=== PATIENT | female | born 1985 | race Caucasian/White ===

== ENCOUNTER 2022-08-28 00:46 | Emergency (ER) | payer MEDICAID, OTHER ==
[~2022-08-28] VITALS: Ht 170.1 cm; Wt 130.3 kg
--- NOTE | 2022-08-28 01:00 | ED Psychosocial ---
General Stated Complaint: MENTAL HEALTH SCREENING History of Present Illness Date Seen by Provider: Aug 28, 2022 Time Seen by Provider: 00:57 Initial Comments 37-year-old female presents for mental health exam. Patient reports that she struggles with self-worth and depression. That she been having some difficulties with her relationship. That over the last 2 days she has had increased suicidal ideation. That for the first time tonight she actually thought of a plan and that scared her. That she thought that she wanted to just go drive [place]. Patient does not have any physical, plane such as fevers chills etc. (ERIC LÓPEZ DO) Allergies and Home Medications Allergies Coded Allergies: No Known Drug Allergies (Unverified , 08/28/22) Patient Home Medication List Home Medication List Reviewed: Yes (ERIC LÓPEZ DO) Review of Systems Constitutional: no symptoms reported; No chills, No fever EENTM: no symptoms reported Respiratory: no symptoms reported Cardiovascular: no symptoms reported Gastrointestinal: no symptoms reported Genitourinary: no symptoms reported : No Musculoskeletal: no symptoms reported Skin: no symptoms reported Psychiatric/Neurological: See HPI, Depressed, Emotional Problems (ERIC LÓPEZ DO) Physical Exam Vital Signs - First Documented 08/28/22 00:51 Temp 37.0 Pulse 89 Resp 18 B/P (MAP) 136/98 (111) Pulse Ox 99 O2 Delivery Room Air (CLAUDINE MARTINEZ MD) Capillary Refill : (ERIC LÓPEZ DO) Height, Weight, BMI Height: '" Weight: lbs. oz. kg; BMI Method: General Appearance: obese, other (tearful ) HEENT: PERRL/EOMI Neck: full range of motion, supple Respiratory: lungs clear, normal breath sounds, no respiratory distress Cardiovascular: normal peripheral pulses, regular rate, rhythm Gastrointestinal: non tender, soft Neurologic/Psychiatric: alert, normal mood/affect, oriented x 3 Appearance/Memory: appropriate appearance Behavior/Eye Contact: normal speech, other (Tearful) Thoughts/Hallucinations: other (Suicidal ideation, depression) Skin: normal color, warm/dry (ERIC LÓPEZ DO) Progress/Results/Core Measures Results/Orders Lab Results Laboratory Tests Test 08/28/22 00:57 08/28/22 09:41 Range/Units White Blood Count 11.2 H 4.3-11.0 10^3/uL Red Blood Count 5.02 3.80-5.11 10^6/uL Hemoglobin 12.3 11.5-16.0 g/dL Hematocrit 39 35-52 % Mean Corpuscular Volume 77 L 80-99 fL Mean Corpuscular Hemoglobin 25 25-34 pg Mean Corpuscular Hemoglobin Concent 32 32-36 g/dL Red Cell Distribution Width 17.8 H 10.0-14.5 % Platelet Count 305 130-400 10^3/uL Mean Platelet Volume 11.4 9.0-12.2 fL Immature Granulocyte % (Auto) 0 % Neutrophils (%) (Auto) 65 42-75 % Lymphocytes (%) (Auto) 23 12-44 % Monocytes (%) (Auto) 7 0-12 % Eosinophils (%) (Auto) 5 0-10 % Basophils (%) (Auto) 1 0-10 % Neutrophils # (Auto) 7.2 1.8-7.8 10^3/uL Lymphocytes # (Auto) 2.5 1.0-4.0 10^3/uL Monocytes # (Auto) 0.7 0.0-1.0 10^3/uL Eosinophils # (Auto) 0.6 H 0.0-0.3 10^3/uL Basophils # (Auto) 0.1 0.0-0.1 10^3/uL Immature Granulocyte # (Auto) 0.0 0.0-0.1 10^3/uL Urine Color YELLOW Urine Clarity SL CLOUDY Urine pH 6.0 5-9 Urine Specific [place] 1.025 H 1.016-1.022 Urine Protein NEGATIVE NEGATIVE Urine Glucose (UA) NEGATIVE NEGATIVE Urine Ketones NEGATIVE NEGATIVE Urine Nitrite NEGATIVE NEGATIVE Urine Bilirubin NEGATIVE NEGATIVE Urine Urobilinogen 0.2 < = 1.0 MG/DL Urine Leukocyte Esterase NEGATIVE NEGATIVE Urine RBC (Auto) TRACE-I H NEGATIVE Urine RBC NONE /HPF Urine WBC RARE /HPF Urine Squamous Epithelial Cells 2-5 /HPF Urine Crystals NONE /LPF Urine Bacteria FEW H /HPF Urine Casts PRESENT /LPF Urine Hyaline Casts RARE /LPF Urine Mucus MODERATE H /LPF Urine Other RARE SPERMATOZOA /HPF Urine Culture Indicated NO Urine Test NEGATIVE NEGATIVE Sodium Level 137 135-145 MMOL/L Potassium Level 3.8 3.6-5.0 MMOL/L Chloride Level 99 98-107 MMOL/L Carbon Dioxide Level 22 21-32 MMOL/L Anion Gap 16 H 5-14 MMOL/L Blood Urea Nitrogen 12 7-18 MG/DL Creatinine 0.92 0.60-1.30 MG/DL Estimat Glomerular Filtration Rate 82 BUN/Creatinine Ratio 13 Glucose Level 124 H 70-105 MG/DL Calcium Level 9.4 8.5-10.1 MG/DL Corrected Calcium 9.2 8.5-10.1 MG/DL Total Bilirubin 0.3 0.1-1.0 MG/DL Aspartate Amino Transf (AST/SGOT) 20 5-34 U/L Alanine Aminotransferase (ALT/SGPT) 25 0-55 U/L Alkaline Phosphatase 133 40-136 U/L Total Protein 7.8 6.4-8.2 GM/DL Albumin 4.3 3.2-4.5 GM/DL Salicylates Level < 0.3 L 5.0-20.0 MG/DL Urine Opiates Screen NEGATIVE NEGATIVE Urine Oxycodone Screen NEGATIVE NEGATIVE Urine Methadone Screen NEGATIVE NEGATIVE Urine Propoxyphene Screen NEGATIVE NEGATIVE Acetaminophen Level < 10 L 10-30 UG/ML Urine Barbiturates Screen NEGATIVE NEGATIVE Ur Tricyclic Antidepressants Screen NEGATIVE NEGATIVE Urine Phencyclidine Screen NEGATIVE NEGATIVE Urine Amphetamines Screen NEGATIVE NEGATIVE Urine Methamphetamines Screen NEGATIVE NEGATIVE Urine Benzodiazepines Screen NEGATIVE NEGATIVE Urine Cocaine Screen NEGATIVE NEGATIVE Urine Cannabinoids Screen POSITIVE H NEGATIVE Serum Alcohol < 10 <10 MG/DL SARS-CoV-2 RNA (RT-PCR) Not Detected Not Detecte (CLAUDINE MARTINEZ MD) My Orders Orders - CLAUDINE MARTINEZ MD Covid 19 Inhouse Test (08/28/22 09:40) Ketorolac Injection (Toradol Injection) (08/28/22 10:32) Ondansetron Oral Dissolve Tab (Zofran (08/28/22 10:32) (CLAUDINE MARTINEZ MD) Vital Signs/I&O 08/28/22 09:00 Temp 36.5 Pulse 75 Resp 16 B/P (MAP) 134/87 (103) Pulse Ox 99 O2 Delivery Room Air (CLAUDINE MARTINEZ MD) Progress Progress Note : Progress Note Patient was evaluated by behavioral health. They feel she would benefit from inpatient therapy and will look for placement for her (ERIC LÓPEZ DO) Progress Note #1: Time: 07:00 Progress Note I assumed care of the patient from Dr. López at shift change. He advised that the patient was medically clear and stable for psychiatric admit and that after mental health evaluation it was felt she would benefit from Inpatient psychiatric care. Awaiting placement at a Psychiatric facility. Progress Note #2: Time: 11:[address] Martinez from [facility] accepted pt for psychiatric admit. Awaiting transport at 1400 to take patient to psychiatric facility. (CLAUDINE MARTINEZ MD) Initial ECG Impression Date: Aug 28, 2022 Initial ECG Impression Time: 01:22 Initial ECG Rate: 84 Initial ECG Rhythm: Normal Sinus Initial ECG Comparisson: No Previous ECG Available Comment Normal sinus rhythm with a heart rate of 84 bpm. OR interval [address] elevation. No prior tracing for comparison. QT interval 369 ms with a QTc interval 437 ms. (CLAUDINE MARTINEZ MD) Departure Impression Primary Impression: Depression with suicidal ideation Disposition: 65 XFER TO PSYCH HOSP/UNIT Condition: Stable Transfer Transfer Reason: Exceeds level of care (Needs psychiatric care) Time Spoke to Accepting Phy: 11:[address] Martinez with [facility] accepted pt for psychiatric care Transfer Facility: [facility] Method of Transfer: Private Vehicle (CLAUDINE MARTINEZ MD) Departure-Patient Inst. Referrals: NO,LOCAL PHYSICIAN (PCP/Family) Primary Care Physician ERIC LÓPEZ DO Aug 28, 2022 01:00 CLAUDINE MARTINEZ MD Aug 28, 2022 07:37
[2022-08-28 01:19] LABS: BASOPHILS # (AUTO) 0.1 10^3/uL (0.0-0.1); BASOPHILS % (AUTO) 1 % (0-10); EOSINOPHILS # (AUTO) 0.6 10^3/uL (0.0-0.3); EOSINOPHILS % (AUTO) 5 % (0-10); HEMATOCRIT 39 % (35-52); HEMOGLOBIN 12.3 g/dL (11.5-16.0); LYMPHOCYTES # (AUTO) 2.5 10^3/uL (1.0-4.0); LYMPHOCYTES % (AUTO) 23 % (12-44); MEAN CORPUSCULAR HEMOGLOBIN 25 pg (25-34); MEAN CORPUSCULAR HGB CONC 32 g/dL (32-36); MEAN CORPUSCULAR VOLUME 77 fL (80-99); MEAN PLATELET VOLUME 11.4 fL (9.0-12.2); MONOCYTES # (AUTO) 0.7 10^3/uL (0.0-1.0); MONOCYTES % (AUTO) 7 % (0-12); NEUTROPHILS # (AUTO) 7.2 10^3/uL (1.8-7.8); NEUTROPHILS % (AUTO) 65 % (42-75); PLATELET COUNT 305 10^3/uL (130-400); WHITE BLOOD COUNT 11.2 10^3/uL (4.3-11.0)
[2022-08-28 01:42] LABS: BACTERIA,URINE FEW /HPF; BILIRUBIN,URINE NEGATIVE (NEGATIVE); CLARITY,URINE SL CLOUDY; COLOR,URINE YELLOW; GLUCOSE, URINE (UA) NEGATIVE (NEGATIVE); KETONES,URINE NEGATIVE (NEGATIVE); LEUKOCYTE ESTERASE ,URINE NEGATIVE (NEGATIVE); NITRITE,URINE NEGATIVE (NEGATIVE); PROTEIN,URINE NEGATIVE (NEGATIVE); WBC,URINE RARE /HPF
[2022-08-28 01:43] LABS: HYALINE CASTS, URINE RARE /LPF; URINE OTHER RARE SPERMATOZOA /HPF
[2022-08-28 01:44] LABS: AMPHETAMINE SCREEN, URINE NEGATIVE (NEGATIVE); BARBITURATE SCREEN URINE NEGATIVE (NEGATIVE); BENZODIAZEPINES SCREEN URINE NEGATIVE (NEGATIVE); CANNABINOID SCREEN, URINE POSITIVE (NEGATIVE); COCAINE SCREEN URINE NEGATIVE (NEGATIVE); HCG,QUALITATIVE URINE NEGATIVE (NEGATIVE); METHADONE STAT NEGATIVE (NEGATIVE); OPIATE SCREEN URINE NEGATIVE (NEGATIVE); OXYCODONE STAT NEGATIVE (NEGATIVE); PROPOXYPHENE STAT NEGATIVE (NEGATIVE); TRICYCLIC ANTIDEPRESSANTS SCRE NEGATIVE (NEGATIVE)
[2022-08-28 02:00] LABS: SODIUM 137 MMOL/L (135-145)
[2022-08-28 02:01] LABS: ACETAMINOPHEN < 10 UG/ML (10-30); ALANINE AMINOTRANSFERASE 25 U/L (0-55); ALBUMIN 4.3 GM/DL (3.2-4.5); ALKALINE PHOSPHATASE 133 U/L (40-136); BILIRUBIN,TOTAL 0.3 MG/DL (0.1-1.0); BUN/CREATININE RATIO 13; CALCIUM 9.4 MG/DL (8.5-10.1); CARBON DIOXIDE 22 MMOL/L (21-32); CHLORIDE 99 MMOL/L (98-107); CREATININE SERUM 0.92 MG/DL (0.60-1.30); GFR ESTIMATED 82; GLUCOSE 124 MG/DL (70-105); POTASSIUM 3.8 MMOL/L (3.6-5.0); SALICYLATE < 0.3 MG/DL (5.0-20.0); TOTAL PROTEIN 7.8 GM/DL (6.4-8.2)
[2022-08-28] MEDS ORDERED: KETOROLAC 60 MG/2 ML VIAL IM STA (10:32)
[2022-08-28] MEDS ORDERED: ONDANSETRON 4 MG (ZOFRAN) ORAL DISSOLVE TAB PO STA (10:32)
[2022-08-28 14:14] VITALS: BP 135/78
== END 2022-08-28 14:07 ==
LOC: ER FS 00:50
DX: F32.A Depression, unspecified (principal); E66.9 Obesity, unspecified; Z68.42 Body mass index [BMI] 45.0-49.9, adult; Z20.822 Contact with and (suspected) exposure to COVID-19
CPT/HCPCS: 36415; 80053; 80306; 80320; 80329; 81000; 84703; 85025; 87636; 93005

== ENCOUNTER 2022-11-27 05:11 | Emergency (ER) | payer MEDICAID ==
[~2022-11-27] VITALS: Ht 170.1 cm; Wt 128.7 kg
--- NOTE | 2022-11-27 05:35 | ED Respiratory ---
General Chief Complaint: Respiratory Problems Stated Complaint: CONGESTION,SOB History of Present Illness Date Seen by Provider: Nov 27, 2022 Time Seen by Provider: 05:27 Initial Comments 37-year-old female with PMH anxiety, depression, and pre-diabetes, ex-smoker who stopped smoking in 2017, is here with complaints of shortness of breath and wheezing which began around 10 PM last night. Patient does not have a history of asthma or COPD. Patient is able to speak and clear sentences however she is wheezing and noticeably short of breath. Patient states that she has been having cough and congestion and runny nose for the past few days. Denies fever, chest pain, palpitations, abdominal pain, diarrhea. No known sick contacts. Allergies and Home Medications Allergies Coded Allergies: No Known Drug Allergies (Unverified , 08/28/22) Patient Home Medication List Home Medication List Reviewed: Yes Escitalopram Oxalate (Escitalopram Oxalate) 10 Mg Tablet, 10 MG PO DAILY, (Reported) Entered as Reported by: LA FERNANDEZ on 11/27/22543 Last Action: New Order Metformin HCl (Metformin HCl) 500 Mg Tablet, 500 MG PO BID, (Reported) Entered as Reported by: LA FERNANDEZ on 11/27/22543 Last Action: New Order Trazodone HCl (Trazodone HCl) 100 Mg Tablet, 100 MG PO HS PRN for INSOMNIA, (Reported) Entered as Reported by: LA FERNANDEZ on 11/27/22543 Last Action: New Order Review of Systems Review of Systems Constitutional: no symptoms reported EENTM: see HPI, nose congestion Respiratory: cough, short of breath, wheezing Cardiovascular: no symptoms reported Gastrointestinal: no symptoms reported Genitourinary: no symptoms reported Musculoskeletal: no symptoms reported Skin: no symptoms reported Psychiatric/Neurological: No Symptoms Reported Hematologic/Lymphatic: No Symptoms Reported Immunological/Allergic: no symptoms reported Past Tdmrzdq-Degemq-Fmmhyv Hx Patient Social History Tobacco Use?: No Smoking Status: Never a Smoker Smokeless Tobacco Frequency: Never a User Use of E-Cig and/or Vaping dev: No Use of E-Cig and/or Vaping Jude: Never a User Substance use?: Yes Substance type: Marijuana Alcohol Use?: No Pt feels they are or have been: No Immunizations Up To Date Influenza Vaccine Up-to-Date: Yes; Up-to-Date First/Initial COVID19 Vaccinat: Unknown date Second COVID19 Vaccination Brandin: Unknown date 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 oz. kg; 45.00 BMI Method: General Appearance: mild distress, obese HEENT: PERRL/EOMI Neck: non-tender, full range of motion Respiratory: lungs clear, wheezing, expiration Cardiovascular: regular rate, rhythm Gastrointestinal: non tender, soft Extremities: normal range of motion Neurologic/Psychiatric: alert, oriented x 3 Skin: normal color Progress/Results/Core Measures Suspected Sepsis SIRS Temperature: Pulse: Respiratory Rate: Blood Pressure / Mean: Results/Orders Lab Results Laboratory Tests Test 11/27/22 05:30 Range/Units Influenza Type A (RT-PCR) Not Detected Not Detecte Influenza Type B (RT-PCR) Not Detected Not Detecte SARS-CoV-2 RNA (RT-PCR) Not Detected Not Detecte My Orders Orders - CONCEPCION RAY MD Isolation [employer] Req (11/27/22 05:29) Covid 19 Inhouse Test (11/27/22 05:36) Influenza A And B By Pcr (11/27/22 05:36) Albuterol/Ipra Inhalation Soln (Duoneb I (11/27/22 05:45) Dexamethasone Injection (Decadron Inje (11/27/22 05:45) Svn Small Volume Nebulizer (11/27/22 05:40) Albuterol/Ipra Inhalation Soln (Duoneb I (11/27/22 06:15) Svn Small Volume Nebulizer (11/27/22 06:14) Medications Given in ED Current Medications Medications Dose Ordered Sig/Xiomy Route Start Time Stop Time Status Last Admin Dose Admin Albuterol/ Ipratropium 3 ml ONCE ONCE INH 11/27/22 05:45 11/27/22 05:46 DC 11/27/22 05:48 3 ML Albuterol/ Ipratropium 3 ml ONCE ONCE INH 11/27/22 06:15 11/27/22 06:18 DC 11/27/22 06:20 3 ML Dexamethasone Sodium Phosphate 10 mg ONCE ONCE IM 11/27/22 05:45 11/27/22 05:46 DC 11/27/22 05:48 10 MG Vital Signs/I&O 11/27/22 11/27/22 11/27/22 05:16 05:48 06:20 Temp 36.3 Pulse 106 Resp 24 B/P (MAP) 132/108 (116) Pulse Ox 99 99 100 O2 Delivery Room Air Room Air Room Air Capillary Refill : Progress Note : Progress Note 1. ACUTE ASTHMA EXACERBATION, NEW ONSET: - Duo Neb x3 with significant improvement - Dexa 10mg im STAT - COVID test and Rapid Flu Test: negative - Prescriptions for Albuterol inhaler every 4 hours as needed for SOB and wheezing - Prescription for Prednisone 50mg daily for 3 days - Follow up with PCP in the next 3 to 7 days -The patient was seen in the ED, and treated appropriately to presentation at a specific point in time. Patient is informed that there is a possibility that dis ease and illness can evolve and change in acuity rapidly or slowly after patient is discharged from the ER. Precautionary advice given to the patient for immediate return to ER if symptoms worsen or do not resolve, and to seek emergency care sooner rather than later. Pt also advised on the importance of PCP follow up and compliance with management and follow up plan with PCP and/or specialist, as this is part of the management plan. Pt verbally expressed understanding. Departure Impression Primary Impression: Asthma with acute exacerbation Qualified Codes: J45.901 - Unspecified asthma with (acute) exacerbation Disposition: 01 HOME, SELF-CARE Condition: Improved Departure-Patient Inst. Referrals: NO,LOCAL PHYSICIAN (PCP/Family) Primary Care Physician Patient Instructions: How to Use Your Metered Dose Inhaler (Adults), Oral Steroid Medicines, Asthma Action Plan ED, Avoiding Asthma Triggers Add. Discharge Instructions: - Prescriptions for Albuterol inhaler every 4 hours as needed for SOB and wheezing - Prescription for Prednisone 50mg daily for 3 days - Follow up with PCP in the next 3 to 7 days All discharge instructions reviewed with patient and/or family. Voiced understanding. Scripts Prednisone (Prednisone) 50 Mg Tab 50 MG PO DAILY for 3 Days, #3 TAB Prov: CONCEPCION RAY MD 11/27/22 Albuterol Sulfate (VENTOLIN HFA) 1 Puff Puff 2 PUFF INH Q4H for Wheezing for 30 Days, #1 EA 1 PUFF = 90 MCG Prov: CONCEPCION RAY MD 11/27/22 CONCEPCION RAY MD Nov 27, 2022 05:35
[2022-11-27] MEDS ORDERED: METF-397 PO (05:44)
[2022-11-27] MEDS ORDERED: TRAZ-227 PO (05:44)
[2022-11-27] MEDS ORDERED: ESCI-2 PO (05:44)
[2022-11-27] MEDS ORDERED: RT-ALBUTEROL/IPRATROPIUM 3 ML (DUONEB) VIAL INH ONE ×3 (05:45→06:45)
[2022-11-27] MEDS ORDERED: PRD50T PO (06:37)
[2022-11-27] MEDS ORDERED: RT-ALBUINH INH (06:37)
[2022-11-27 07:07] VITALS: BP 133/75
== END 2022-11-27 07:06 | disposition home or self-care (01) ==
LOC: EDUNIT# 05:11 → ER FS 05:12
DX: J45.901 Unspecified asthma with (acute) exacerbation (principal); E66.9 Obesity, unspecified; Z68.42 Body mass index [BMI] 45.0-49.9, adult; Z87.891 Personal history of nicotine dependence; Z20.822 Contact with and (suspected) exposure to COVID-19
CPT/HCPCS: 87636; 94640

== ENCOUNTER 2023-07-23 12:08 | Emergency (ER) | payer MEDICAID ==
[~2023-07-23] VITALS: Ht 171 cm; Wt 119.5 kg
[~2023-07-23 12:08] MED LIST: ESCI-2 PO; METF-397 PO; PRD50T PO; RT-ALBUINH INH; TRAZ-227 PO
[2023-07-23 12:10] VITALS: BP 160/87
--- NOTE | 2023-07-23 12:22 | ED Fall/Injury ---
General Chief Complaint: Upper Extremity Stated Complaint: RT HAND PAIN/INJ Source: patient History of Present Illness Date Seen by Provider: Jul 23, 2023 Time Seen by Provider: 12:11 Initial Comments 38 yo female presenting with pain to right hand after she had tripped on her dog last night and caught herself with her hand. She denies hitting her head or l osing consciousness. She denies any other injuries. She had pain 7 out of 10 and throbbing but down to 5 out of 10 after taking ibuprofen this am around 8 am. She has an abrasion on the inside of her pinky finger on right hand as well. Occurred: yesterday Severity: moderate Injuries/Pain Location: upper extremity (right hand) Context: tripped Loss of Consciousness: no loss of consciousness Modifying Factors: Improves With Cold Therapy; Worse With Movement; Improves With Pain Medication Associated Symptoms (Fall): No Abdominal Pain, No Chest Pain, No Confusion, No Dizziness, No Headache, No Lightheadedness, No Muscle Spasms, No Nausea/Vomiting, No Neck Pain, No Ringing in Ears, No Seizures, No Shortness of Air, No Slurred Speech, No Trouble Walking, No Vision Changes Allergies and Home Medications Allergies Coded Allergies: No Known Drug Allergies (Unverified , 08/28/22) Patient Home Medication List Home Medication List Reviewed: Yes Albuterol Sulfate (Ventolin Hfa) 1 Puff Puff, 2 PUFF INH Q4H Prescribed by: CONCEPCION RAY MD on 11/27/22636 Escitalopram Oxalate (Escitalopram Oxalate) 10 Mg Tablet, 10 MG PO DAILY, (Reported) Entered as Reported by: LA FERNANDEZ on 11/27/22 0544 Hydrocodone/Acetaminophen (Hydrocodone-Acetamin 5-325 mg) 5 Mg-325 Mg Tablet, 1 TAB PO Q6H PRN for PAIN SEVERE Prescribed by: CLAUDINE MARTINEZ on 07/23/23 1410 Metformin HCl (Metformin HCl) 500 Mg Tablet, 500 MG PO BID, (Reported) Entered as Reported by: LA FERNANDEZ on 11/27/22 05 Prednisone (Prednisone) 50 Mg Tab, 50 MG PO DAILY Prescribed by: CONCEPCION RAY MD on 11/27/22 06 Trazodone HCl (Trazodone HCl) 100 Mg Tablet, 100 MG PO HS PRN for INSOMNIA, (Reported) Entered as Reported by: LA FERNANDEZ on 11/27/22 0544 Review of Systems Review of Systems Constitutional: No chills, No dizziness, No fever Eyes: No Symptoms Reported Ears, Nose, Mouth, Throat: no symptoms reported Respiratory: no symptoms reported Cardiovascular: no symptoms reported Gastrointestinal: no symptoms reported Genitourinary: no symptoms reported Musculoskeletal: see HPI Skin: see HPI Psychiatric/Neurological: Denies Numbness, Denies Paresthesia Past Avfognm-Ulkskt-Umvsjt Hx Patient Social History Tobacco Use?: No Substance use?: No Immunizations Up To Date First/Initial COVID19 Vaccinat: Unknown date Second COVID19 Vaccination Brandin: Unknown date Past Medical History Surgery/Hospitalization HX: Anxiety, Depression, Pre-Diabetes Physical Exam Vital Signs Vital Signs - First Documented 07/23/23 12:10 Temp 37.0 Pulse 88 Resp 16 B/P (MAP) 160/87 (111) Pulse Ox 100 O2 Delivery Room Air Capillary Refill : Height, Weight, BMI Height: '" Weight: lbs. oz. kg; 44.00 BMI Method: General Appearance: WD/WN, no apparent distress Cardiovascular: normal peripheral pulses Extremities: normal capillary refill, other (superficial abrasion to right pinky finger between 4th and 5th fingers. decreased ROM to right pinky finger due to pain. ) Neurologic/Psychiatric: no motor/sensory deficits, alert, oriented x 3 Skin: warm/dry [place] Coma Score Best Eye Response: (4) Open Spontaneously Best Verbal Response: (5) Oriented Best Motor Response: (6) Obeys Commands Raimundo Total: 15 Procedures/Interventions Splinting and Joint Reduction : Location: right hand Pre-Proc Neuro Vasc Exam: normal Post-Proc Neuro Vasc Exam: normal Progress After obtaining verbal consent from the patient the nursing staff applied a stockinette and additional padding before placing OCL for an ulnar gutter splint. Personally helped with placement of the splint and adjustment of the wrist positioning and flexion of the pinky and ring finger. Patient was neurovascularly intact both pre and post splinting. Counseled on and watching for circulation and nerve complications from injury and splinting. Counseled to loosen the Kenan wrap if she felt like she was getting too much swelling or was getting numbness and tingling into her fingers or discoloration to her fingers. Counseled on capillary refill and monitoring to ensure she had good blood flow to her fingers. Advised to keep the splint clean and dry and try to elevate ab ove heart level to help with pain and swelling. Check back with orthopedics within a week to see about changing over to a cast. Arm Sling: [place] Hand-Made Type: orthoglass Splint Application: Short Arm Progress/Results/Core Measures Results/Orders My Orders Orders - CLAUDINE MARTINEZ MD Ice: Apply To Affected Area (07/23/23 12:16) Hand 3 View Right (07/23/23 12:16) Ed Ortho/Other Supplies Order (07/23/23 13:20) Ortho Glass (07/23/23 13:20) Orthopedic Equiment (07/23/23 13:20) Vital Signs/I&O 07/23/23 12:10 Temp 37.0 Pulse 88 Resp 16 B/P (MAP) 160/87 (111) Pulse Ox 100 O2 Delivery Room Air Progress Progress Note #1: Progress Note Ice to help pain and inflammation. Xrays of right hand to look for bony abnormality. She had taken Ibuprofen around 8 am so defer any additional medicine for now. Progress Note #2: Progress Note X-rays demonstrate a small chip fracture of the head of the fifth metacarpal. Patient is neurovascularly and tendon intact. Placed in a ulnar gutter splint to stabilize the fifth metacarpal fracture. Counseled on follow-up and return precautions. Advised to keep the splint clean and dry and follow-up with orthopedics within a week. Given phone number for nurse practitioner Ruddy Adams as well as orthopedist Dr. Amy Gonzales. Diagnostic Imaging Diagonstic Imaging: Xray Plain Films/CT/US/NM/MRI: hand Comments [facility]. [place], [place] NAME: NAEEM SANDRA [facility] REC#: [id number] PT STATUS: REG ER : 1985 PHYSICIAN: CLAUDINE MARTINEZ MD ADMIT DATE: 07/23/23/ER FS Signed Date of Exam:07/23/23 HAND 3 VIEW RIGHT EXAMINATION: Right hand 3 views HISTORY: Finger injury COMPARISON: None available. FINDINGS: There is a tiny chip fracture at the head of the fifth metacarpal. No other fracture. No dislocation. Joint spaces are normal. IMPRESSION: 1. Tiny chip fracture of the head of the fifth metacarpal. Dictated by: Dictated on workstation # [id number] Dict: 07/23/23 1255 Trans: 07/23/23 1347 CV [id number] Interpreted by: HERNESTO JONES MD Electronically signed by: HERNESTO JONES MD 07/23/23 1343 Reviewed: Reviewed by Me Departure Impression Primary Impression: Closed nondisplaced fracture of fifth metacarpal bone of right hand Qualified Codes: S62.396A - Other fracture of fifth metacarpal bone, right hand, initial encounter for closed fracture Additional Impressions: Contusion of right hand, initial encounter Sprain of other part of right wrist and hand, initial encounter Disposition: HOME, SELF-CARE Condition: Stable Departure-Patient Inst. Decision time for Depature: 14:05 Referrals: CAPRICE ADAMS NO,LOCAL PHYSICIAN (PCP) Primary Care Physician AMY GONZALES MD Patient Instructions: Using Cold for Pain, Muscle and Bone Pain (DC), Splint Care ED, Hand Fracture ED Add. Discharge Instructions: Follow up with Orthopedics of your choice within the next week. They will likely change your splint over to a cast for the chip fracture of the 5th metacarpal in your right hand. Keep splint clean and dry. Use sling to help support your arm. Try to keep your hand elevated above heart level as much as possible to help with pain, swelling, throbbing. Follow-up with orthopedics within the next week to see about possibly changing over to a cast from the splint. You may continue to take ibuprofen and/or acetaminophen but for severe pain you will have a prescription for hydrocodone/acetaminophen 5/325 1 pill every 6 hours as needed for severe pain. Do not drive or operate equipment while taking the Hydrocodone/acetaminophen as it is a narcotic. May apply ice 20-30 minutes every few hours as needed for pain and swelling. All discharge instructions reviewed with patient and/or family. Voiced understanding. Scripts Hydrocodone/Acetaminophen (Hydrocodone-Acetamin 5-325 mg) 5 Mg-325 Mg Tablet 1 TAB PO Q6H PRN for PAIN SEVERE for 5 Days, #20 TAB 0 Refills Prov: CLAUDINE MARTINEZ MD 07/23/23 Work/School Note: Work Release Form Date Seen in the Emergency Department: Jul 23, 2023 Return to Work: Jul 24, 2023 Restrictions: Need Release from Doctor Other Restrictions Listed Below: Light duty, Limit use right arm and wear splint until cleared by doctor CLAUDINE MARTINEZ MD Jul 23, 2023 12:22
--- NOTE | 2023-07-23 12:58 | Diagnostic Imaging Report ---
EXAMINATION: Right hand 3 views HISTORY: Finger injury COMPARISON: None available. FINDINGS: There is a tiny chip fracture at the head of the fifth metacarpal. No other fracture. No dislocation. Joint spaces are normal. IMPRESSION: 1. Tiny chip fracture of the head of the fifth metacarpal. Dictated by: Dictated on workstation # [id number]
[2023-07-23] MEDS ORDERED: ACHD5005 PO (14:09)
== END 2023-07-23 14:14 | disposition home or self-care (01) ==
LOC: EDUNIT# 12:08 → ER FS 12:10
DX: S62.306A Unspecified fracture of fifth metacarpal bone, right hand, initial encounter for closed fracture (principal); S63.501A Unspecified sprain of right wrist, initial encounter; W22.8XXA Striking against or struck by other objects, initial encounter
CPT/HCPCS: 29125; 73130

== ENCOUNTER → 2023-07-31 | Outpatient (CLI) | payer MEDICAID ==
[~2023-07-31] MED LIST changes: +ACHD5005 PO
== END ==
LOC: ORTHO 13:00
PROVIDERS: ATTEND Orthopaedic Surgery
DX: S62.306A Unspecified fracture of fifth metacarpal bone, right hand, initial encounter for closed fracture (principal); X58.XXXA Exposure to other specified factors, initial encounter
CPT/HCPCS: 99203